=== PATIENT | female | born 1995 ===

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

== ENCOUNTER 2017-05-11 18:39 | Emergency (ER) | payer OTHER ==
[2017-05-11 18:54] VITALS: O2SAT 100
[2017-05-11] MEDS ORDERED: Sodium Chloride 0.9% 1,000 ML IV ONE (19:18)
--- NOTE | 2017-05-11 19:21 | C.PDOC ---
History Of Present Illness 22 y/o female, who presents to the ED complaining of vaginal bleeding and suprapubic pain since last night. Patient states she is unsure if she is . Patient denies fever, chest pain, shortness of breath, or other complaints. Time Seen by Provider: 05/11/17 19:14 Chief Complaint (Nursing): Female Genitourinary History Per: Patient History/Exam Limitations: no limitations Onset/Duration Of Symptoms: Days Current Symptoms Are (Timing): Still Present Location Of Pain/Discomfort: Suprapubic Associated Symptoms: denies: Fever, Vomiting Alleviating Factors: None Recent travel outside of the [place]: No Abnormal Vaginal Bleeding: Yes Past Medical History Reviewed: Historical Data, Nursing Documentation, Vital Signs Vital Signs: Last Vital Signs Temp 98.0 F 05/11/17 21:01 Pulse 82 05/11/17 21:01 Resp 18 05/11/17 21:01 BP 98/60 L 05/11/17 21:01 Pulse Ox 100 05/11/17 21:58 Family History: States: Unknown Family Hx - Social History Hx Alcohol Use: No Hx Substance Use: No - Immunization History Hx Tetanus Toxoid Vaccination: Yes Hx Influenza Vaccination: No Hx Pneumococcal Vaccination: No Review Of Systems Except As Marked, All Systems Reviewed And Found Negative. Constitutional: Negative for: Fever Cardiovascular: Negative for: Chest Pain Respiratory: Negative for: Shortness of Breath Gastrointestinal: Positive for: Abdominal Pain Genitourinary: Positive for: Vaginal Bleeding Physical Exam - Physical Exam Appears: Well, Non-toxic, No Acute Distress Skin: Normal Color, Warm, Dry Head: Atraumatic, Normacephalic Eye(s): bilateral: Normal Inspection, PERRL, EOMI Cardiovascular: Rhythm Regular Respiratory: Normal Breath Sounds, No Rales, No Rhonchi, No Wheezing Gastrointestinal/Abdominal: Bowel Sounds (active), Tenderness (minimal right adnexal tenderness ), No Distention, No Guarding, No Rebound Neurological/Psych: Oriented x3, Normal Speech ED Course And Treatment - Laboratory Results Result Diagrams: 05/11/17 19:33 05/11/17 19:33 O2 Sat by Pulse Oximetry: 100 (room air) Pulse Ox Interpretation: Normal Medical Decision Making Medical Decision Making: ro pelvic palthogy vs menstruation - labs imaging pending Plans: -- Labs -- Ultrasound -- Urinalysis pt reassessed all symptoms resolved.d no rlq tpp. labs us neg. pt states feels well for dc advise strict return precautions Disposition - Disposition Referrals: [facility] [address] [facility] [Outside] [facility] [Outside] [facility] [Outside] Disposition: HOME/ ROUTINE Disposition Time: 09:00 Condition: STABLE Additional Instructions: return to er with worsening symptoms or concerns. Instructions: Acute Abdomen (Belly Pain), Heavy Periods (DC) Forms: [employer] (Cameroonian) - Clinical Impression Clinical Impression: Vaginal bleeding - Scribe Statement The provider has reviewed the documentation as recorded by the Scribe Scribe Attestation: Apoorva Nuñez MD Scribe Attestation: All medical record entries made by the Scribe were at my direction and personally dictated by me. I have reviewed the chart and agree that the record accurately reflects my personal performance of the history, physical exam, medical decision making, and the department course for this patient. I have also personally directed, reviewed, and agree with the discharge instructions and disposition.
[2017-05-11] MEDS ORDERED: Sodium Chloride 0.45% 1,000 ML IV ONE (19:35)
[2017-05-11 19:39] LABS: BASO % 0.5 % (0.0-2.0); EOS % 0.1 % (0.0-4.0); HEMOGLOBIN 12.7 g/dL (11.0-16.0); LYMPH # 1.9 K/uL (1.0-4.3); LYMPH % 21.9 % (20.0-40.0); MEAN CELL VOLUME 88.7 fL (81.0-99.0); MEAN CORPUSCULAR HEMOGLOBIN 29.3 pg (27.0-31.0); MONO # 0.5 K/uL (0.0-0.8); MONO % 6.1 % (0.0-10.0); NEUT # 6.3 K/uL (1.8-7.0); NEUT % 71.4 % (50.0-75.0); RBC 4.34 Mil/uL (3.80-5.20); WHITE BLOOD COUNT 8.9 K/uL (4.8-10.8)
[2017-05-11 19:47] LABS: INR 1.3; PROTHROMBIN TIME 14.6 SECONDS (9.7-12.2)
[2017-05-11 19:50] LABS: ALB/GLOB RATIO 1.1 (1.0-2.1); ALBUMIN 4.3 g/dL (3.5-5.0); ALT/SGPT 21 U/L (9-52); AST/SGOT 20 U/L (14-36); BLOOD UREA NITROGEN 12 mg/dL (7-17); CALCIUM 9.2 mg/dl (8.6-10.4); GFR AFRICAN-AMERICAN > 60; GFR NON-AFRICAN AMERICAN > 60
[2017-05-11 20:40] LABS: HCG,QUALITATIVE URINE NEGATIVE (NEGATIVE)
--- NOTE | 2017-05-11 20:40 | US ---
EXAM: US Pelvis, transabdominal limited and Transvaginal EXAM DATE/TIME: Exam ordered 05/11/2017 7:19 PM CLINICAL HISTORY: 22 years old, female; Signs and symptoms; Menstruation abnormalities; Irregular menstruation; Additional info: Vb TECHNIQUE: Real-time transabdominal (limited) and transvaginal pelvic ultrasound (complete) with image documentation. Transvaginal imaging was used for better evaluation of the endometrium and adnexa. COMPARISON: No relevant prior studies available. FINDINGS: Uterus/cervix: Transabdominally, The bladder is poorly distended. There is suboptimal visualization of the uterus and ovaries. Endometrial stripe is not seen. Transvaginal ultrasound was performed for better delineation of the uterus and adnexa. Transvaginally, The uterus measures 6.8 x 3.5 x 4.4 cm. The endometrial stripe measures 4 mm. There is a nabothian cyst noted within the cervix. No myometrial mass. Right ovary: Transvaginally, The right ovary measures 4.8 x 2.1 x 3.6 cm and contains a simple follicle measuring 2.3 cm in maximal diameter. Blood flow is seen in the right ovary on color Doppler examination. Left ovary: Transvaginally, The left ovary measures 3.7 x 1.7 x 2.1 cm. Subcentimeter follicles are present. Free fluid: No free fluid. Bladder: See above. Other findings: The transabdominal images submitted of the pelvis. IMPRESSION: 1. Normal transvaginal pelvic ultrasound. 2. The transabdominal examination was limited. Poor bladder distention precluded satisfactory visualization of uterus and ovaries.
[2017-05-11 20:44] LABS: SQUAMOUS EPITHIAL 1 /hpf (0-5); URINE AMORPHOUS SEDIMENT RARE /ul (<OCC); URINE BACTERIA RARE (<OCC); URINE BILIRUBIN NEGATIVE (NEGATIVE); URINE BLOOD NEGATIVE (NEGATIVE); URINE CLARITY Hazy (Clear); URINE COLOR Yellow (YELLOW); URINE GLUCOSE (UA) NORMAL (Normal); URINE LEUKOCYTE ESTERASE NEGATIVE Leu/uL (Negative); URINE PROTEIN 1+ mg/dL (NEGATIVE)
[2017-05-11 21:02] VITALS: BP 98/60; PULSE 82; RESP 18; TEMP 98
== END 2017-05-11 21:01 | disposition home or self-care (01) ==
LOC: C.ER 18:39
DX: N93.9 Abnormal uterine and vaginal bleeding, unspecified (principal)
CPT/HCPCS: 76830; 80053; 81001; 84702; 84703; 85025; 85610; 85730; 86850; 86900; 96360; 99285; J7040

== ENCOUNTER 2017-09-17 07:44 | Emergency (ER) | payer OTHER ==
[2017-09-17 08:01] VITALS: O2SAT 100
[2017-09-17 08:42] LABS: BASO % 0.4 % (0.0-2.0); EOS % 0.4 % (0.0-4.0); HEMOGLOBIN 11.5 g/dL (11.0-16.0); LYMPH # 1.8 K/uL (1.0-4.3); LYMPH % 21.8 % (20.0-40.0); MEAN CELL VOLUME 90.4 fL (81.0-99.0); MEAN CORPUSCULAR HEMOGLOBIN 30.8 pg (27.0-31.0); MEAN PLATELET VOLUME 9.3 fL (7.2-11.7); MONO # 0.6 K/uL (0.0-0.8); NEUT # 5.8 K/uL (1.8-7.0); NEUT % 70.4 % (50.0-75.0); RBC 3.73 Mil/uL (3.80-5.20); WHITE BLOOD COUNT 8.2 K/uL (4.8-10.8)
--- NOTE | 2017-09-17 08:48 | C.PDOC ---
History Of Present Illness 22-year-old female, presents to the emergency department with complaints of lower abdominal discomfort, that is intermittent in nature, and described as cramping. Patient states she did a test at home and it was positive. Patient denies any vaginal bleeding, discharge, urinary symptoms, or any other associated symptoms. No other complaints at this time. Time Seen by Provider: 09/17/17 08:04 Chief Complaint (Nursing): Abdominal Pain History Per: Patient History/Exam Limitations: no limitations Past Medical History Reviewed: Historical Data, Nursing Documentation, Vital Signs Vital Signs: Last Vital Signs Temp 98.3 F 09/17/17 07:58 Pulse 77 09/17/17 07:58 Resp 16 09/17/17 07:58 BP 132/65 09/17/17 07:58 Pulse Ox 100 09/17/17 11:25 Family History: States: No Known Family Hx - Social History Hx Alcohol Use: No Hx Substance Use: No - Immunization History Hx Tetanus Toxoid Vaccination: No Hx Influenza Vaccination: No Hx Pneumococcal Vaccination: No Review Of Systems Constitutional: Negative for: Fever, Chills Cardiovascular: Negative for: Chest Pain, Palpitations Respiratory: Negative for: Shortness of Breath Gastrointestinal: Positive for: Abdominal Pain. Negative for: Nausea, Vomiting Genitourinary: Negative for: Dysuria, Hematuria, Vaginal Discharge, Vaginal Bleeding Musculoskeletal: Negative for: Back Pain Neurological: Negative for: Weakness, Headache, Dizziness Physical Exam - Physical Exam Appears: Non-toxic, No Acute Distress Skin: Normal Color, Warm, Dry, No Rash Head: Atraumatic, Normacephalic Eye(s): bilateral: Normal Inspection, PERRL, EOMI Nose: Normal Oral Mucosa: Moist Lips: Normal Appearing Neck: Normal ROM Cardiovascular: Rhythm Regular, No Murmur Respiratory: Normal Breath Sounds, No Accessory Muscle Use Gastrointestinal/Abdominal: Soft, No Tenderness, No Guarding, No Rebound Back: Normal Inspection Extremity: Normal ROM, No Deformity, No Swelling Neurological/Psych: Oriented x3, Normal Speech ED Course And Treatment - Laboratory Results Result Diagrams: 09/17/17 08:38 09/17/17 08:38 O2 Sat by Pulse Oximetry: 100 (RA) Pulse Ox Interpretation: Normal Medical Decision Making Medical Decision Making: patient u/s inclusive. Will discharge home to follow up for repeat bhcg and ultrasound. Disposition Counseled Patient/Family Regarding: Studies Performed, Diagnosis, Need For Followup - Disposition [facility]errals[facility] [[facility]] [facility] [Outside] Disposition: HOME/ ROUTINE Disposition Time: 11:25 Condition: STABLE Additional Instructions: follow up with medical clinic within 2 days call to make an appointment you will need repeat bhcg and ultrasound in 2-4 days return to ER if symptoms worsens or progress Instructions: Screenings, Threatened Miscarriage Forms: [employer] (Slovenian), General Discharge Instructions, Gen Discharge Inst Nicaraguan, [employer] (Nicaraguan) Print Language: NIUEAN - Clinical Impression Clinical Impression: , Abdominal pain - Scribe Statement The provider has reviewed the documentation as recorded by the Scribe (Panda Small) All medical record entries made by the Scribe were at my direction and personally dictated by me. I have reviewed the chart and agree that the record accurately reflects my personal performance of the history, physical exam, medical decision making, and the department course for this patient. I have also personally directed, reviewed, and agree with the discharge instructions and disposition.
[2017-09-17 08:55] LABS: ALB/GLOB RATIO 1.3 (1.0-2.1); ALT/SGPT 21 U/L (9-52); AST/SGOT 17 U/L (14-36); BLOOD UREA NITROGEN 10 mg/dL (7-17); GFR AFRICAN-AMERICAN > 60; GFR NON-AFRICAN AMERICAN > 60
[2017-09-17 09:11] LABS: URINE BILIRUBIN NEGATIVE (NEGATIVE); URINE BLOOD NEGATIVE (NEGATIVE); URINE CLARITY Clear (Clear); URINE COLOR Yellow (YELLOW); URINE GLUCOSE (UA) NORMAL (Normal); URINE LEUKOCYTE ESTERASE NEG Leu/uL (Negative); URINE PROTEIN NEGATIVE (NEGATIVE); URINE UROBILINOGEN NORMAL mg/dL (0.2-1.0)
--- NOTE | 2017-09-17 10:48 | US ---
Date of service: 09/17/2017 HISTORY: abd. cramping LMP: 08/12/2017 Serum beta HCG 565.8 COMPARISON: Pelvic ultrasound dated 05/11/2017. TECHNIQUE: Grayscale, color Doppler and spectral evaluation the pelvis performed transabdominally and transvaginally. FINDINGS: UTERUS: Measures 7.4 x 4.8 x 5.1 cm. Normal in size and appearance. No fibroid or other mass lesion seen. ENDOMETRIUM: Measures 11 mm in diameter. Unremarkable. CERVIX: No cervical abnormality identified. RIGHT OVARY: Measures 2.7 x 1.0 x 2.1 cm. No solid mass. Normal flow. LEFT OVARY: Measures 3.9 x 4.0 x 4.8 cm. Cyst measuring 2.0 x 3.4 x 2.7 cm. Normal flow. FREE FLUID: Small to moderate free fluid noted. OTHER FINDINGS: None. IMPRESSION: No evidence of intrauterine gestation. Findings may represent early normal/ abnormal with ectopic not excluded. Close clinical follow-up with serial pelvic sonography and serum beta HCG levels is recommended. Left ovarian 3.4 cm cyst. Small to moderate amount of free fluid.
[2017-09-17 11:51] VITALS: BP 98/60; PULSE 74; RESP 18; TEMP 98.6
== END 2017-09-17 11:51 | disposition home or self-care (01) ==
LOC: C.ER 07:44
DX: O26.891 Other specified pregnancy related conditions, first trimester (principal); R10.9 Unspecified abdominal pain; Z3A.00 Weeks of gestation of pregnancy not specified

== ENCOUNTER 2017-10-30 13:04 | Emergency (ER) | payer OTHER ==
--- NOTE | 2017-10-30 14:13 | C.PDOC ---
History Of Present Illness WORSENING NV X 3 WEEKS. SUBJ FEVER THIS MORNING, +SUPRAPUB TEND TODAY. NO VB. . PS HAS UNK ANTIEMETIC RX BUT NO IMPROVE EXAM MILD DIST NONTOXIC HEENT MM DRY ABD SOFT NT ND NO R/G REMAINDER NEG MDM HYPEREMESIS, PREV US INDETERMINATE. IVF, ANTIEMETIC TX, REPEAT BETA QUANT Time Seen by Provider: 10/30/17 13:58 Chief Complaint (Nursing): Dizziness/Lightheaded History Per: Patient History/Exam Limitations: no limitations Onset/Duration Of Symptoms: Days Current Symptoms Are (Timing): Still Present Severity: Moderate Past Medical History Reviewed: Historical Data, Nursing Documentation, Vital Signs Vital Signs: Last Vital Signs Temp 100.3 F H 10/30/17 13:32 Pulse 107 H 10/30/17 13:32 Resp 20 10/30/17 13:32 BP 100/64 10/30/17 13:32 Pulse Ox 100 10/30/17 15:22 - Medical History PMH: No Chronic Diseases Surgical History: No Surg Hx Family History: States: No Known Family Hx - Social History Hx Alcohol Use: No Hx Substance Use: No - Immunization History Hx Tetanus Toxoid Vaccination: No Hx Influenza Vaccination: No Hx Pneumococcal Vaccination: No Review Of Systems Except As Marked, All Systems Reviewed And Found Negative. Constitutional: Positive for: Fever (subjective fever). Negative for: Chills Gastrointestinal: Positive for: Nausea, Vomiting, Abdominal Pain Genitourinary: Negative for: Dysuria, Hematuria Physical Exam - Physical Exam Appears: Non-toxic (mild distress), Other Skin: Normal Color, Warm, Dry Head: Atraumatic, Normacephalic Eye(s): bilateral: Normal Inspection Nose: Normal Oral Mucosa: Dry Respiratory: Other (NARD) Gastrointestinal/Abdominal: Soft, No Tenderness, No Distention, No Guarding, No Rebound Neurological/Psych: Oriented x3, Normal Speech ED Course And Treatment - Laboratory Results Result Diagrams: 10/30/17 14:53 10/30/17 14:53 ECG: Interpreted By Me, Viewed By Me ECG Rhythm: Sinus Rhythm Rate From EC O2 Sat by Pulse Oximetry: 100 (RA) Pulse Ox Interpretation: Normal Progress - Re-Evaluation Re-evaluation Note: 10/30/17 16:16 SP IVF +UO FEELS BETTER WISHES DC HOME. - Data Reviewed Data Reviewed: Lab, Diagnostic imaging, Old records Medical Decision Making Medical Decision Making: HYPEREMESIS, PREV US INDETERMINATE. IVF, ANTIEMETIC TX, REPEAT BETA QUANT Disposition Counseled Patient/Family Regarding: Studies Performed, Diagnosis, Need For Followup, Rx Given - Disposition Referrals: Primitivo Rose MD [Staff Provider] - Disposition: HOME/ ROUTINE Disposition Time: 16:17 Condition: IMPROVED Prescriptions: Metoclopramide [Reglan] 1 tab PO TID PRN #25 tab PRN Reason: Nausea/Vomiting Instructions: Nausea and Vomiting of (DC) Forms: [employer] (Hebrew), Work Excuse - Clinical Impression Clinical Impression: Vomiting , Dizziness - Scribe Statement The provider has reviewed the documentation as recorded by the Daksha Jones Provider Attestation: All medical record entries made by the Daksha were at my direction and personally dictated by me. I have reviewed the chart and agree that the record accurately reflects my personal performance of the history, physical exam, medical decision making, and the department course for this patient. I have also personally directed, reviewed, and agree with the discharge instructions and disposition.
[2017-10-30] MEDS ORDERED: Sodium Chloride 0.9% 1,000 ML IV ONE (14:14)
[2017-10-30 15:02] LABS: BASO % 0.2 % (0.0-2.0); EOS % 0.1 % (0.0-4.0); HEMOGLOBIN 10.9 g/dL (11.0-16.0); LYMPH # 0.5 K/uL (1.0-4.3); LYMPH % 5.6 % (20.0-40.0); MEAN CELL VOLUME 90.4 fL (81.0-99.0); MEAN CORPUSCULAR HEMOGLOBIN 30.7 pg (27.0-31.0); MEAN CORPUSCULAR HGB CONC 33.9 g/dL (33.0-37.0); MEAN PLATELET VOLUME 9.3 fL (7.2-11.7); MONO # 0.7 K/uL (0.0-0.8); MONO % 7.6 % (0.0-10.0); NEUT # 8.1 K/uL (1.8-7.0); NEUT % 86.5 % (50.0-75.0); PLATELET COUNT 188 K/uL (130-400); RBC 3.56 Mil/uL (3.80-5.20); RED CELL DISTRIBUTION WIDTH 11.7 % (11.5-14.5); WHITE BLOOD COUNT 9.3 K/uL (4.8-10.8)
[2017-10-30] MEDS ORDERED: Sodium Chloride 0.9% 1,000 ML ONE (15:04)
[2017-10-30 15:15] LABS: ALB/GLOB RATIO 1.2 (1.0-2.1); ALBUMIN 4.3 g/dL (3.5-5.0); ALT/SGPT 19 U/L (9-52); AST/SGOT 16 U/L (14-36); BLOOD UREA NITROGEN 7 mg/dL (7-17); CALCIUM 9.2 mg/dl (8.6-10.4); GFR NON-AFRICAN AMERICAN > 60
[2017-10-30 15:24] LABS: ANISOCYTOSIS SLIGHT; BASOPHIL 1 % (0-2); HYPOCHROMIC SLIGHT; LYMPHOCYTE 6 % (20-40); MONOCYTE 5 % (0-10); MYELOCYTE 1 % (0-0); NEUTROPHIL 87 % (50-75); OVALOCYTES SLIGHT; PLATELET ESTIMATE NORMAL (NORMAL); POIKILOCYTOSIS SLIGHT; TARGET CELLS SLIGHT; TOTAL CELLS COUNTED 100
[2017-10-30 15:26] LABS: SQUAMOUS EPITHIAL 16 /hpf (0-5); URINE BILIRUBIN NEGATIVE (NEGATIVE); URINE BLOOD NEGATIVE (NEGATIVE); URINE CLARITY Hazy (Clear); URINE COLOR Yellow (YELLOW); URINE GLUCOSE (UA) NORMAL (Normal); URINE LEUKOCYTE ESTERASE NEG Leu/uL (Negative); URINE PROTEIN 1+ mg/dL (NEGATIVE); URINE UROBILINOGEN NORMAL mg/dL (0.2-1.0)
[2017-10-30 16:27] VITALS: BP 105/63; PULSE 92; RESP 18; TEMP 99.3; O2SAT 95
--- NOTE | 2017-10-31 14:23 | CARD ---
APPROVED REPORT Date of service: 10/30/2017 EKG Measurement Heart [id number] <Conclusion> Normal sinus rhythm Normal ECG
== END 2017-10-30 16:35 | disposition home or self-care (01) ==
LOC: C.ER 13:04
DX: O21.9 Vomiting of pregnancy, unspecified (principal); R42 Dizziness and giddiness; Z3A.10 10 weeks gestation of pregnancy
CPT/HCPCS: 80053; 81001; 84702; 85025; 87086; 93005; 96374; 99285; J2765; J7030

== ENCOUNTER 2018-03-01 23:15 | Emergency (ER) | payer OTHER ==
[2018-03-01 23:49] VITALS: BMI 20.9
[2018-03-02 00:16] LABS: SQUAMOUS EPITHIAL 3 /hpf (0-5); URINE BILIRUBIN NEGATIVE (NEGATIVE); URINE BLOOD NEGATIVE (NEGATIVE); URINE CLARITY Clear (Clear); URINE COLOR Straw (YELLOW); URINE GLUCOSE (UA) NORMAL (Normal); URINE LEUKOCYTE ESTERASE 1+ Leu/uL (Negative); URINE PROTEIN NEGATIVE (NEGATIVE); URINE UROBILINOGEN NORMAL mg/dL (0.2-1.0)
--- NOTE | 2018-03-02 01:08 | OBHP ---
Datetime: 03/02/2018 01:03 IP Adm Impression: , intrauterine ; No Active Labor IP Admit Plan: Discharge home Admit Comment, IP Provider: PT PRESENTS TODAY AT TRIAGE WITH COMPLAINTS OF VAGINAL PRESSURE/PAIN. PA IN 07/04, DOES NOT RADIATE; PT DENIES HEMATURIA, URGENCY OR FREQUENCY. VSS: AFEBRILE UA: +UTI, A/P 22 @ 28 WEEKS WITH UTI 1) VSS: AFEBRILE 2) UTI-> KEFLEX 3) FOLLOW UP WITH DR. FRANK. 4) D/C HOME. Pelvic Type - PN: Adequate Extremities - PN: Normal Abdomen - PN: Normal Back - PN: Normal Breast - PN: Normal Lungs - PN: Normal Heart - PN: Normal Thyroid - PN: Normal Neurologic - PN: Normal HEENT - PN: Normal General - PN: Normal FHR - Baseline A Provider: 140 Gestation - Est Wks by US: 28.0 EGA AdmitDate IP: 28.3 Vital Signs Provider: Reviewed IP Chief Complaint: Signs/symptoms UTI NICHD Variability Prov Fetus A: Moderate 6-25bpm NICHD Accel Fetus A IP Provider: [id number] NICHD Decel Fetus A IP Provider: None Genitourinary Exam: Normal DTRs - PN: Normal
[2018-03-02 05:15] VITALS: BP 108/75; PULSE 96; RESP 18; TEMP 97.7
== END 2018-03-02 01:12 | disposition home or self-care (01) ==
LOC: C.EROB 23:15
DX: O23.43 Unspecified infection of urinary tract in pregnancy, third trimester (principal); Z3A.28 28 weeks gestation of pregnancy